=== PATIENT | female | born 1935 | race Caucasian/White ===

== ENCOUNTER 2017-08-05 11:54 | Outpatient (CLI) | payer OTHER | END 2017-08-05 11:55 | disposition home or self-care (01) | LOC: BICMAMMO 11:54 | PROVIDERS: ATTEND Internal Medicine | DX: Z12.31 Encounter for screening mammogram for malignant neoplasm of breast (principal); Z80.3 Family history of malignant neoplasm of breast | CPT/HCPCS: 77067 ==

== ENCOUNTER 2017-12-22 14:44 | Observation (INO) | payer MEDICARE, OTHER ==
[2017-12-22 15:23] LABS: #Eosinphils 0.1 thou/uL (0.0-0.7); #Lymphocytes 1.5 thou/uL (1.20-3.40); #Monocytes 0.3 thou/uL (0.11-0.59); #Neutrophils 2.6 thou/uL (1.40-6.50); %Eosinophils 1.3 % (0.0-10.0); %Lymphocytes 32.3 % (21.0-51.0); %Monocytes 6.8 % (0.0-10.0); %Neutrophils 58.6 % (42.0-75.0); Giant Platelets SLIGHT; Hemoglobin 14.8 g/dL (12.0-16.0); MDiff Complete? YES; Mean Corpuscular HGB CONC 35.4 g/dL (32.0-36.0); Mean Corpuscular Hemoglobin 30.5 pg (27.0-31.0); Mean Platelet Volume 10.9 fL (7.4-10.4); PLT Morphology Comment Appears Decreased; Platelet Count 107 thou/uL (130-400); Red Blood Cell (RBC) Count 4.85 mill/uL (4.20-5.40); White Blood Cell (WBC) Count 4.5 thou/uL (4.8-10.8)
[2017-12-22 15:27] LABS: Anion Gap 13 mmol/L (10-20); BUN (Urea Nitrogen) 18 mg/dL (9.8-20.1); Calc. Creatinine Clearance 0 mL/min (70-130); Calcium 10.1 mg/dL (7.8-10.44); Carbon Dioxide 27 mmol/L (23-31); Chloride 104 mmol/L (98-107); Estimated GFR-MDRD 70; Glucose 116 mg/dL (83-110); Potassium 3.2 mmol/L (3.5-5.1); Sodium 141 mmol/L (136-145)
[2017-12-22 15:31] LABS: CKMB 1.2 ng/mL (0-6.6); Troponin I 0.037 ng/mL (< 0.028)
[2017-12-22 15:39] LABS: Bilirubin Negative (Negative); Blood, Urine Negative (Negative); Clarity Clear (Clear); Glucose, Urine (Dipstick) Negative (Negative); Leukocyte Negative (Negative); Nitrite Negative (Negative); Protein, Urine (Dipstick) Negative (Neg-Trace); Urobilinogen 0.2 mg/dL (0.2-1.0)
--- NOTE | 2017-12-22 15:52 | RAD ---
CHEST ONE VIEW: History: Chest pain. Comparison: 01-06-2015 FINDINGS: Lungs are clear. No pneumothorax or effusion. Cardiac silhouette and mediastinal contour is within no rmal limits. No acute osseous abnormality. IMPRESSION: No acute intrathoracic abnormality or significant change. POS: [facility]
[2017-12-22 17:31] VITALS: BMI 24.0
[2017-12-22] MEDS ORDERED: Ondansetron ODT 4 MG TAB SL PRN (18:09)
[2017-12-22] MEDS ORDERED: Acetaminophen 325 MG TAB PO PRN (18:09)
[2017-12-22] MEDS ORDERED: Ondansetron HCl/PF 4 MG/2 ML Vial IVP PRN (18:09)
[2017-12-22] MEDS ORDERED: hydrALAZINE 20 MG/ML VIAL SLOW IVP PRN (18:10)
[2017-12-22] MEDS ORDERED: cloNIDine 0.1 MG TAB PO PRN ×2 (18:10→22:30)
[2017-12-22 18:44] LABS: Troponin I 0.031 ng/mL (< 0.028)
[2017-12-22] MEDS: Amlodipine 5 MG TAB PO SCH (20:03)
[2017-12-22 21:28] LABS: Troponin I 0.037 ng/mL (< 0.028)
[2017-12-22] MEDS ORDERED: Bupropion 150 MG XL TAB PO SCH (22:45)
[2017-12-22] MEDS ORDERED: diphenhydrAMINE 25 MG CAP PO SCH (22:45)
[2017-12-22] MEDS ORDERED: Ezetimibe 10 MG TAB PO SCH (22:45)
[2017-12-22] MEDS ORDERED: Atorvastatin Calcium 40 MG TAB PO SCH (22:45)
[2017-12-22] MEDS ORDERED: Magnesium Oxide 250 MG TAB PO SCH (22:45)
[2017-12-22] MEDS ORDERED: Lactinex Tablet PO SCH (23:00)
[2017-12-22] MEDS ORDERED: Nitrofurantoin Macrocrystal 50 MG CAP PO SCH (23:00)
[2017-12-23 06:02] LABS: Cardiac Risk 3.7 (Less than 4.5)
[2017-12-23] MEDS ORDERED: Amlodipine 5 MG TAB PO SCH (09:00)
[2017-12-23] MEDS ORDERED: Hydrochlorothiazide 25 MG TAB PO SCH (09:00)
[2017-12-23] MEDS ORDERED: Lactinex Tablet PO SCH (09:00)
[2017-12-23] MEDS: Amlodipine 5 MG TAB PO SCH (10:01)
[2017-12-23 11:38] VITALS: BP 138/63; TEMP 97.8
[2017-12-23] MEDS ORDERED: Ezetimibe 10 MG TAB PO SCH (21:00)
[2017-12-23] MEDS ORDERED: diphenhydrAMINE 25 MG CAP PO SCH (21:00)
[2017-12-23] MEDS ORDERED: Magnesium Oxide 250 MG TAB PO SCH (21:00)
[2017-12-23] MEDS ORDERED: Bupropion 150 MG XL TAB PO SCH (21:00)
[2017-12-23] MEDS ORDERED: Nitrofurantoin Macrocrystal 50 MG CAP PO SCH (21:00)
[2017-12-23] MEDS ORDERED: Atorvastatin Calcium 40 MG TAB PO SCH (21:00)
--- NOTE | 2017-12-24 03:43 | DIS ---
PRIMARY CARE PHYSICIAN: Jordyn Nunes MD PRIMARY REGULATORY LEADER: At the [facility], Mike Peterson MD REASON FOR ADMISSION: Chest pain. DIAGNOSES ON DISCHARGE: 1. Chest pain, resolved. 2. Indeterminate troponins. 3. History of coronary artery disease with previous normal stress tests. 4. Hyperlipidemia. 5. Hypertension. 6. Mitral valve regurgitation. PROCEDURES: Attempted nuclear medicine stress test, the patient refused due to adverse effect of the radionucleotide injection. CONSULTATIONS: None. SUMMARY OF HOSPITAL COURSE: This is an 82-year-old white female with a known history of very mild co ronary artery disease by cath many years ago. She has had multiple stress tests over the years, alwa ys has adverse reactions during and does not like them at all, most recently had transferred care to Dr. Peterson at the [facility] where she had a PET cardiac scan. She had bad reactions to the nuclear trace rs for this scan as well and not just to this stress exams. The patient came into the emergency room , complaining of a 15-minute episode of sharp chest pain, starting in the epigastric region and movin g over to the lower and then upper left chest, had some generalized weakness as well. She stated lea t the pain felt similar to the pain she has had before that always resolves with antacids, but this t tabitha it did not last for 15 minutes and then resolved spontaneously, so she came in to the emergency r oom to be evaluated. In the ER, she was found to have minimally indeterminate troponin 0.037, this s table for 2 more checks. She was put in observation and nuclear medicine stress test was ordered thi s morning. The patient went down for a nuclear medicine stress test, however, they injected the radi onucleotide medication. After they injected medication and put her into the waiting area, she felt s uddenly weak all over, felt bad and then was worried that she will be too weak to be able to stand th e stress portion of exam, so she refused to go further. She did have some elevated blood pressures a t that time and she has not had her blood pressure medications in the morning. She came back up to [facility] floor, blood pressure of 190 systolic. She was given her home medications and it resolved to 138/ 63 and her weakness has resolved, but she is refusing further attempts at the stress, I did examine t he patient again after she was admitted, the later the day of admission, she had no chest pain, she d id have a little bit of chest wall tenderness on lower end of the left rib cage that reproduced her p ain. Her weakness had resolved. She never had any focal weakness, just felt a generalized sense of weakness overall, given her a minimally indeterminate troponins and history of coronary artery diseas e, I did recommend that we do a stress test; however, patient refused. I then did discuss options of further workup in the hospital versus followup with her washroom cleaner, given her lack of further elev ation of her troponin and her resolution, all symptoms were atypical in nature, the lowest as being a n acute coronary artery syndrome. The patient stated that she will get an appointment with her [facility] ologist on Tuesday, will follow up closely with him. DISCHARGE MANAGEMENT: I did stress the patient, I cannot completely exclude this being coronary kenyetta ry disease as we unable to do to stress test and she expressed understanding of this and will follow up with her washroom cleaner and follow his recommendations, if wants to repeat her catheterization, she also understands to return to the emergency room immediately, she has recurrence of her chest pain. DISCHARGE MANAGEMENT: Discharge home. FOLLOWUP: Follow up with Dr. Peterson in 3 days. ACTIVITY: As tolerated. DIET: Healthy heart diet. MEDICATIONS: The patient is to resume all of her previous home medications. 1. Amlodipine 5 mg twice a day. 2. Aspirin 81 mg daily. 3. Atorvastatin 80 mg at night. 4. Bupropion XL 150 mg at night. 5. Vitamin D3 1000 units at night. 6. Clonidine 0.1 mg every 6 hours as needed for systolic blood pressure greater than 180 or diastoli c blood pressure greater than 100. 7. Benadryl 25 mg at night. 8. Zetia 10 mg at night. 9. Hydrochlorothiazide 12.5 mg each morning. 10. Probiotic 1 capsule twice a day. 11. Magnesium 1000 mg each night. 12. Toprol-XL 25 mg at night. 13. Nitrofurantoin 50 mg at night. 14. Benicar 50 mg each at night.
--- NOTE | 2017-12-24 22:21 | HP ---
PRIMARY CARE PHYSICIAN: Jordyn Nunes MD CHIEF COMPLAINT: Chest pain. HISTORY OF PRESENT ILLNESS: This is an 82-year-old female with a history of hyperlipidemia, hypertension who presented with a chief complaint of chest pain described as originating from the stomach area and moving towards the left side of the chest, that lasted approximately 15 minutes and started in the afternoon prior to presentation.. This started while the patient was at rest and was not relieved by antacids, which the patient tried at home. At the time of my evaluation, the patient is currently chest pain free and able to provide the history as per above. Patient does make note that she had a prior heart catheterization "several years ago" and a prior ultrasound of her heart in the past 2 years without any evidence of coronary artery disease. She also recalls a prior stress test in the past as well. REVIEW OF SYSTEMS: As per the HPI above and is otherwise negative. Of note, the patient has a history of occasional reflux. Describes this pain as vastly different from her reflux type pain. PAST MEDICAL HISTORY: As per HPI. Includes; 1. Hypertension. 2. Hyperlipidemia. 3. History of mitral valvular regurgitation. 4. Status post appendectomy. 5. Status post cholecystectomy. 6. Status post hysterectomy. HOME MEDICATIONS: As per EMR, the patient's list seems to currently include the following; Wellbutrin, probiotic, Zetia, Lipitor, Benicar, Toprol, aspirin , magnesium, Benadryl, clonidine, amlodipine, and vitamin D3. The patient denies any changes to this regimen within the last month. Denies any new jhlm-ana-xglegrs medications, herbal supplements, or vitamins other than those listed above in the last month. ALLERGIES: No known drug allergies. FAMILY HISTORY: No known family history of coronary artery disease. The patient does have a family history of cancer, most specifically ovarian cancer. SOCIAL HISTORY: Patient denies any alcohol, tobacco, or illicit drug use. She is accompanied today with a family member with her at bedside. The patient endorses wishing to be FULL CODE at this point in time. PHYSICAL EXAMINATION: GENERAL: The patient is awake, alert, appropriate, oriented x3, provides a history as per above and is in no acute distress, lying in the hospital bed. HEENT: Normocephalic, atraumatic, slightly dry mucous membranes. Equal ocular motions are intact. No posterior oropharyngeal erythema or exudate. CARDIOVASCULAR: S1, S2. Pulses 2+ bilateral upper extremities. No pitting pedal edema. RESPIRATORY: Reasonable air movement. No conversational dyspnea. No wheezes, rales, or rhonchi, otherwise clear to auscultation. ABDOMEN: Positive bowel sounds, soft, nontender to palpation. MUSCULOSKELETAL: Moving all 4 extremities. LABORATORY DATA AND IMAGING: EKG significant for an incomplete right bundle- branch block. WBC 4.5, hemoglobin 14.8, hematocrit 41.8, platelets 107,000. Sodium 141, potassium 3.2, chloride 104, bicarbonate 27, BUN 18, creatinine 0.78 , glucose 116. Troponin 0.037 followed by 0.031. UA is bland. ASSESSMENT AND PLAN: This is an 82-year-old female who presents with chest pain. 1. Chest pain with risk factors, significant for hypertension and hyperlipidemia. 2. Indeterminate troponin currently, repeat a third troponin in the morning. Continue the patient on her home regimen otherwise, we will order a stress test in the morning. 3. Hypertension. Continue the patient on her home regimen. 4. Hyperlipidemia. Continue the patient on her home regimen. Admit the patient to observation status, FULL CODE. Thank you for asking me to care for the patient. Questions or concerns, contact me at [facility]. RHODA
== END 2017-12-23 14:55 | disposition home or self-care (01) ==
LOC: SCSER 14:44 → 2SW 15:46
PROVIDERS: ADMIT Internal Medicine; ATTEND Internal Medicine
DX: R07.9 Chest pain, unspecified (principal); E78.5 Hyperlipidemia, unspecified; I10 Essential (primary) hypertension; I34.0 Nonrheumatic mitral (valve) insufficiency; I25.10 Atherosclerotic heart disease of native coronary artery without angina pectoris; Z79.899 Other long term (current) drug therapy; Z79.82 Long term (current) use of aspirin
CPT/HCPCS: 71045; 80048; 80061; 81003; 82553; 84484 ×2; 85025; 93005; 94760; 99285; G0378; 36415; J0360

== ENCOUNTER 2018-07-03 09:28 | Outpatient (CLI) | payer MEDICARE ==
--- NOTE | 2018-07-03 12:02 | BD ---
DEXA BONE DENSITY SCAN: DATE: 07/03/2018. COMPARISON: 02/17/2012. HISTORY: Postmenopausal female undergoing evaluation for osteoporosis. FINDINGS: Lumbar Spine: BMD (g/cm2) L1 0.615 T-Score: -3.4, previous T-Score: -3.1 L2 0.625 T-Score: -3.7, previous T-Score: -2.9 L3 0.622 T-Score: -4.2, previous T-Score: -3.5 L4 0.589 T-Score: -4.3, previous T-Score: -3.5 L1-L4 0.612 T-Score: -4.0, previous T-Score: -3.3 Femoral Neck: 0.557 T-Score: -2.6, previous T-Score: -1.8 Total Femur: 0.719 T-Score: -1.8, previous T-Score: -1.4 The FRAX-WHO fracture risk assessment total is not reported as T-Scores are at or below -2.5. 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 POS: [facility]
== END 2018-07-03 09:29 | disposition home or self-care (01) ==
LOC: BICMAMMO 09:28
PROVIDERS: ATTEND Family Medicine
DX: Z78.0 Asymptomatic menopausal state (principal); M81.0 Age-related osteoporosis without current pathological fracture
CPT/HCPCS: 77080

== ENCOUNTER 2018-07-17 10:53 | Outpatient (CLI) | payer MEDICARE ==
--- NOTE | 2018-07-17 13:40 | ULT ---
ULTRASOUND RENAL BILATERAL STANDARD: Date: 07/17/18 HISTORY: Urinary tract infection. COMPARISON: None. FINDINGS:L Right kidney measures 10.1 x 4.3 x 4.2 cm. Left kidney measures 9.6 x 5.7 x 4.9 cm. Pre-void urinary bladder volume is 115 mL. Post-void residual is 85 mL. Both ureteral jets are seen. No renal mass, hydronephrosis, or abnormal calcifications. IMPRESSION: Incomplete bladder emptying. POS: [facility]
== END 2018-07-17 10:54 | disposition home or self-care (01) ==
LOC: SCSULT 10:53
PROVIDERS: ATTEND Urology
DX: N39.0 Urinary tract infection, site not specified (principal); R33.9 Retention of urine, unspecified
CPT/HCPCS: 76770

== ENCOUNTER 2018-08-14 07:22 | Outpatient (CLI) | payer MEDICARE ==
[2018-08-14 07:52] LABS: ALT (SGPT) 33 U/L (8-55); AST (SGOT) 31 U/L (5-34); Albumin 4.2 g/dL (3.4-4.8); Alkaline Phosphatase 68 U/L (40-150); Anion Gap 11 mmol/L (10-20); BUN (Urea Nitrogen) 14 mg/dL (9.8-20.1); Bilirubin, Total 0.8 mg/dL (0.2-1.2); Calc. Creatinine Clearance 0 mL/min (70-130); Calcium 9.4 mg/dL (7.8-10.44); Carbon Dioxide 32 mmol/L (23-31); Cardiac Risk 3.4 (Less than 4.5); Chloride 105 mmol/L (98-107); Cholesterol 190 mg/dl (< 200 Desired); Estimated GFR-MDRD 69; Globulin 2.6 g/dL (2.4-3.5); Glucose 102 mg/dL (83-110); HDL Cholesterol 56 mg/dL (>60 Neg Risk); LDL Cholesterol, Calculated 119 mg/dL; Potassium 3.6 mmol/L (3.5-5.1); Protein, Total 6.8 g/dL (6.0-8.3); Sodium 144 mmol/L (136-145); Triglycerides 77 mg/dL (Less than 150)
== END 2018-08-14 07:23 | disposition home or self-care (01) ==
LOC: SCSLAB 07:22
PROVIDERS: ATTEND Family Medicine
DX: E55.9 Vitamin D deficiency, unspecified (principal); E78.5 Hyperlipidemia, unspecified
CPT/HCPCS: 36415; 80053; 80061; 82306

== ENCOUNTER 2020-11-04 10:48 | Outpatient (CLI) | payer MEDICARE | END 2020-11-04 10:49 | disposition home or self-care (01) | LOC: BICMAMMO 10:48 | PROVIDERS: ATTEND Family Medicine | DX: Z13.820 Encounter for screening for osteoporosis (principal); Z78.0 Asymptomatic menopausal state; M81.0 Age-related osteoporosis without current pathological fracture | CPT/HCPCS: 77080 ==

== ENCOUNTER 2021-08-20 08:29 | Outpatient (CLI) | payer MEDICARE | END 2021-08-20 08:30 | disposition home or self-care (01) | LOC: CT 08:29 | PROVIDERS: ATTEND Family Medicine | DX: S09.90XA Unspecified injury of head, initial encounter (principal) | CPT/HCPCS: 70450 ==